=== PATIENT | female | born 2000 | race Caucasian/White ===

== ENCOUNTER → 2022-02-09 | Outpatient (CLI) | payer OTHER ==
[~2022-02-09] MED LIST: ISOVUE-300 61% 50ML VIAL As Ordered ONE; LIDOCAINE 1% MDV 20ML VIAL As Ordered ONE; TRIAMCINOLONE ACETONIDE SUSP 40 MG/ML VIAL (J3301) As Ordered ONE
== END ==
LOC: M RADPRO 15:33
PROVIDERS: ATTEND Physician Assistant Surgical
DX: S73.121A Ischiocapsular ligament sprain of right hip, initial encounter (principal); X58.XXXA Exposure to other specified factors, initial encounter; Y92.9 Unspecified place or not applicable
CPT/HCPCS: 20610; 77002; J3301; Q9967

== ENCOUNTER 2022-06-15 14:37 | Emergency (ER) | payer OTHER ==
[~2022-06-15] VITALS: Ht 167.6 cm; Wt 70.5 kg
[2022-06-15] MEDS ORDERED: NAPR-885 PO (16:28)
[2022-06-15 16:37] LABS: BACTERIA, URINE SMALL AMOUNT; RBC, URINE 30-40 /hpf (0-3); SQUAMOUS EPITHELIAL CELL URINE SMALL AMOUNT /hpf (SMALL AMT)
[2022-06-15 16:38] LABS: HYALINE CAST, URINE NONE SEEN /lpf (0-1); MUCUS, URINE SMALL AMOUNT (NEGATIVE)
[2022-06-15 16:55] VITALS: BP 107/65
== END 2022-06-15 16:58 | disposition home or self-care (01) ==
LOC: M ED 14:37 → EDBD 14:37 → M ED 16:58
DX: N94.6 Dysmenorrhea, unspecified (principal)

== ENCOUNTER → 2022-10-07 | Outpatient (REF) ==
[~2022-10-07] MED LIST changes: -ISOVUE-300 61% 50ML VIAL As Ordered ONE; -LIDOCAINE 1% MDV 20ML VIAL As Ordered ONE; +NAPR-885 PO; -TRIAMCINOLONE ACETONIDE SUSP 40 MG/ML VIAL (J3301) As Ordered ONE
== END ==
LOC: M PLAIMG 10:53
PROVIDERS: ATTEND Internal Medicine
DX: R06.02 Shortness of breath (principal)

== ENCOUNTER 2023-02-08 06:52 | Emergency (ER) | payer OTHER ==
[~2023-02-08] VITALS: Ht 167.6 cm; Wt 71.2 kg
[2023-02-08] MEDS ORDERED: ACET-910 PO (06:59)
[2023-02-08] MEDS ORDERED: KETOROLAC 60MG 2ML VIAL IM ONE (11:20)
[2023-02-08 11:36] VITALS: BP 120/62
== END 2023-02-08 11:43 | disposition home or self-care (01) ==
LOC: M ED 06:52
DX: S76.011A Strain of muscle, fascia and tendon of right hip, initial encounter (principal); Z79.1 Long term (current) use of non-steroidal anti-inflammatories (NSAID)
CPT/HCPCS: 73552; 96372; 99283; J1885